=== PATIENT | female | born 1990 | race Caucasian/White ===

== ENCOUNTER 2023-05-19 15:57 | Outpatient (CLI) | payer OTHER ==
--- NOTE | 2023-05-20 14:57 | MRI Report ---
PROCEDURE: HIP WO - RT INDICATIONS: RIGHT HIP PAIN TECHNIQUE: Noncontrast coronal T1 spin echo and STIR through the bony pelvis. Coronal and axial T2 fast spin ec ho with fat saturation, sagittal T1 spin echo, and oblique axial T2 fast spin echo with fat saturatio n through the hip. COMPARISON: None. FINDINGS: Image quality: Excellent. Bones and joints: There is no marrow edema. No intraosseous lesions or fractures. No avascular necro sis of the femoral heads. 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 The visualized lower lumbar spine appears normally aligned. Tendons: The gluteus medius and minimus tendons appear intact, without associated muscle atrophy. T he iliopsoas tendon appears intact, without adjacent bursal fluid collections. The origin of the ham string tendon is intact at the ischial tuberosity. Labrum and cartilage: There is subtle fraying of superior anterior right hip labrum in the absence of intra-articular contrast. Cartilage surface of the femoral head appears of normal thickness. The a lpha angle of the femur is within normal limits at less than 55 degrees. Soft tissues: Visualized muscles demonstrate normal bulk and internal signal. The proximal sciatic neurovascular bundle appears normal adjacent to the hamstring tendons. No free pelvic fluid. Bladde r wall thickness is normal. Genitourinary structures and bowel loops appear normal where visualized. IMPRESSION: 1. Slight prominence of superior anterior right femoral head neck junction with subcortical cystic ar ea which can be seen associated with cam-type femoral acetabular impingement. No marrow edema. No fra cture or dislocation. No suspicious bony lesion. No evidence of avascular necrosis of femoral head. 2. No gross muscle or tendon signal abnormality is seen. 3. Suggestion of very subtle superior anterior right hip labral tear at 12 to 1:00 position. Reviewed by: Regis Frazier MD on 05/20/2023 2:56 PM PDT Approved by: Regis Frazier MD on 05/20/2023 2:56 PM PDT Station ID: [id number]
== END 2023-05-19 15:58 | disposition home or self-care (01) ==
LOC: DI 15:57
PROVIDERS: ATTEND Registered Nurse
DX: M25.551 Pain in right hip (principal); G89.29 Other chronic pain

== ENCOUNTER 2023-11-15 08:00 | Outpatient (CLI) | payer OTHER ==
[2023-11-16 00:52] LABS: BACTERIAL VAGINOSIS DNA POSITIVE (NEGATIVE); CANDIDA GLABRATA DNA NEGATIVE (NEGATIVE); CANDIDA GROUP DNA POSITIVE (NEGATIVE); CANDIDA KRUSEI DNA NEGATIVE (NEGATIVE); TRICHOMONAS VAGINALIS DNA NEGATIVE (NEGATIVE)
== END 2023-11-15 23:59 | disposition home or self-care (01) ==
LOC: LAB.N 08:00
PROVIDERS: ATTEND Physician Assistant
DX: N76.0 Acute vaginitis (principal)
CPT/HCPCS: 81514

== ENCOUNTER 2023-12-01 16:00 | Outpatient (CLI) | payer OTHER ==
[2023-12-01 23:37] LABS: BACTERIAL VAGINOSIS DNA NEGATIVE (NEGATIVE); CANDIDA GLABRATA DNA NEGATIVE (NEGATIVE); CANDIDA GROUP DNA POSITIVE (NEGATIVE); CANDIDA KRUSEI DNA NEGATIVE (NEGATIVE); TRICHOMONAS VAGINALIS DNA NEGATIVE (NEGATIVE)
[2023-12-02 00:29] LABS: CHLAMYDIA TRACHOMATIS DNA NEGATIVE (NEGATIVE); NEISSERIA GONORRHOEAE DNA NEGATIVE (NEGATIVE)
== END 2023-12-01 16:15 | disposition home or self-care (01) ==
LOC: LAB.N 16:00
PROVIDERS: ATTEND Physician Assistant Medical
DX: N89.8 Other specified noninflammatory disorders of vagina (principal)
CPT/HCPCS: 81514; 87491; 87591; 87661